=== PATIENT | female | born 1990 | race Caucasian/White ===

== ENCOUNTER 2018-02-01 13:42 | Observation (INO) | payer MEDICAID ==
[2018-02-01 15:35] LABS: Appearance CLEAR (CLEAR); Bilirubin NEGATIVE (NEGATIVE); Glucose NEGATIVE (NEGATIVE); Ketones NEGATIVE (NEGATIVE); Leukocyte Esterase TRACE (NEGATIVE); Nitrite NEGATIVE (NEGATIVE); Protein,Urine Dip NEGATIVE (Negative); Specific Gravity 1.015 (1.005-1.025); Urobilinogen NORMAL mg/dL (0-1)
[2018-02-01] MEDS ORDERED: Lactated Ringers 1,000 ML IV SCH (16:00)
[2018-02-01 16:04] LABS: BASOPHIL % 0.2 % (0.0-0.4); Basophil (Absolute #) 0.02 (0-0.4); Eosinophil % 0.8 % (0.00-5.0); Eosinophil (Absolute #) 0.11 (0-0.5); Granulocyte Absolute (ANC) 8.86 (1.4-6.9); Granulocytes % 68.1 % (36.0-66.0); Hematocrit 34.7 % (35-47); Hemoglobin 11.3 gm/dl (12.0-16.0); Lymphocyte (Absolute #) 2.91 (1.0-4.6); Lymphocytes % 22.4 % (24.0-44.0); Mean Corpuscular Hgb Concent. 32.6 g/dl (32-36); Mean Platelet Volume 9.9 fl (6-9.5); Monocytes % 8.5 % (0.0-12.0); Platelet Count 301 K/mm3 (150-450); Red Blood Count 4.18 M/mm3 (4.1-5.4); Red Cell Distribution Width 14.8 % (11.5-14.0)
[2018-02-01 16:28] LABS: ALBUMIN 3.8 g/dl (3.5-5.0); ALKALINE PHOSPHATASE 105 U/L (38-126); ANION GAP 16.5 MEQ/L; BLOOD UREA NITROGEN 9 mg/dl (7-17); CHLORIDE 103 mEq/L (98-107); Calcium 8.8 mg/dl (8.4-10.2); Carbon Dioxide 21 mmol/L (22-30); Creatinine 1 0.51 mg/dl (0.52-1.04); Glucose 76 mg/dL (74-106); Potassium 3.7 mmol/L (3.5-5.1); SGOT/AST 13 U/L (14-36); SGPT/ALT 8 U/L (0-35); SODIUM 137 mmol/L (137-145); Total Protein 7.2 mg/dl (6.3-8.2)
[2018-02-01 16:33] LABS: Bacteria RARE /HPF (NEGATIVE); Epithelial Cells FEW /HPF (FEW); WBC 0-2 /HPF (0-5)
[2018-02-01 17:00] LABS: INFLUENZA A NEGATIVE (NEGATIVE); INFLUENZA B NEGATIVE (NEGATIVE); RESPIRATORY SYNCTIAL VIRUS NEGATIVE (Negative)
[2018-02-01] MEDS: Lactated Ringers 1,000 ML IV SCH (17:30)
[2018-02-01] MEDS ORDERED: TYLENOL 325 MG PO PRN (19:38)
[2018-02-02] MEDS: Lactated Ringers 1,000 ML IV SCH (00:47)
[2018-02-02 11:53] VITALS: BP 121/58; PULSE 106; O2SAT 98
== END 2018-02-02 11:40 | disposition home or self-care (01) ==
LOC: OB 13:42
PROVIDERS: ADMIT Family Medicine; ATTEND Family Medicine
DX: Z34.83 Encounter for supervision of other normal pregnancy, third trimester (principal)
CPT/HCPCS: 36415; 80053; 81000; 85025; 87631; G0378; A9270-GY

== ENCOUNTER 2018-02-16 15:51 | Inpatient (IN) | payer BC, MEDICAID ==
[2018-02-17] MEDS ORDERED: PITOCIN 30 UNITS/ LR 500 ML 500 ML IV SCH (05:00)
[2018-02-17] MEDS ORDERED: BRETHINE 1 MG/ML SQ PRN (05:00)
[2018-02-17 06:02] LABS: BASOPHIL % 0.2 % (0.0-0.4); Basophil (Absolute #) 0.02 (0-0.4); Eosinophil (Absolute #) 0.13 (0-0.5); Granulocyte Absolute (ANC) 7.95 (1.4-6.9); Granulocytes % 60.6 % (36.0-66.0); Hematocrit 37.2 % (35-47); Lymphocyte (Absolute #) 3.95 (1.0-4.6); Lymphocytes % 30.2 % (24.0-44.0); Mean Corpuscular Hemoglobin 26.8 pg (26-32); Mean Corpuscular Hgb Concent. 32.3 g/dl (32-36); Mean Platelet Volume 10.2 fl (6-9.5); Monocyte (Absolute #) 1.05 (0.0-1.3); Platelet Count 339 K/mm3 (150-450); Red Blood Count 4.48 M/mm3 (4.1-5.4); Red Cell Distribution Width 15.2 % (11.5-14.0); White Blood Count 13.1 K/mm3 (4.0-10.5)
[2018-02-17] MEDS: Lactated Ringers 1,000 ML IV SCH (06:27)
[2018-02-17 09:43] LABS: Amphetamine,Urine NEGATIVE (NEGATIVE); Barbiturate,Urine NEGATIVE (NEGATIVE); Benzodiazepine,Urine NEGATIVE (NEGATIVE); Cocaine,Urine NEGATIVE (NEGATIVE); Methadone,Urine NEGATIVE (NEGATIVE); Opiate,Urine NEGATIVE (NEGATIVE); PCP,Urine NEGATIVE (NEGATIVE); THC,Urine NEGATIVE (NEGATIVE)
[2018-02-17] MEDS ORDERED: OB EPIDURAL NAROPIN/SUFENTANIL IN NACL EPIDURAL PRN (11:09)
[2018-02-17] MEDS ORDERED: Lactated Ringers 1,000 ML IV ONE (11:09)
[2018-02-17] MEDS ORDERED: Ephedrine Sulfate 50 MG/ML IV PRN (11:09)
[2018-02-17] MEDS ORDERED: XYLOCAINE 1% HCL 20 ML MDV IJ PRN (14:45)
[2018-02-17] MEDS ORDERED: Mylicon 80MG PO PRN (15:49)
[2018-02-17] MEDS ORDERED: Dermoplast Spray TP PRN (15:49)
[2018-02-17] MEDS ORDERED: Dulcolax 10 MG SUPP PR PRN (15:49)
[2018-02-17] MEDS ORDERED: LANSINOH 40 GM TOP PRN (15:49)
[2018-02-17] MEDS ORDERED: Anucort-HC SUPPOSITORY PR PRN (15:49)
[2018-02-17] MEDS ORDERED: CORTISONE 1% CREAM TP PRN (15:49)
[2018-02-17] MEDS ORDERED: TYLENOL EXTRA STRENGTH 500 MG PO PRN (15:49)
[2018-02-17] MEDS ORDERED: NORCO 5/325 MG PO PRN (15:49)
[2018-02-17] MEDS ORDERED: Ambien 10 MG PO PRN (15:49)
[2018-02-17] MEDS ORDERED: TUCKS TP PRN (15:49)
[2018-02-17] MEDS: Colace 100 MG PO SCH (22:12)
[2018-02-17] MEDS: MOTRIN 400 MG PO PRN (22:12)
[2018-02-18 05:53] LABS: BASOPHIL % 0.1 % (0.0-0.4); Basophil (Absolute #) 0.01 (0-0.4); Eosinophil % 0.9 % (0.00-5.0); Eosinophil (Absolute #) 0.13 (0-0.5); Granulocyte Absolute (ANC) 9.08 (1.4-6.9); Granulocytes % 61.7 % (36.0-66.0); Hemoglobin 9.4 gm/dl (12.0-16.0); Lymphocyte (Absolute #) 3.86 (1.0-4.6); Lymphocytes % 26.2 % (24.0-44.0); Mean Corpuscular Hemoglobin 26.6 pg (26-32); Mean Corpuscular Hgb Concent. 31.3 g/dl (32-36); Mean Platelet Volume 10.5 fl (6-9.5); Monocyte (Absolute #) 1.63 (0.0-1.3); Monocytes % 11.1 % (0.0-12.0); Platelet Count 242 K/mm3 (150-450); Red Blood Count 3.53 M/mm3 (4.1-5.4); Red Cell Distribution Width 14.9 % (11.5-14.0); White Blood Count 14.7 K/mm3 (4.0-10.5)
[2018-02-18 07:08] LABS: Slide Review 1 YES
[2018-02-18] MEDS: Colace 100 MG PO SCH ×2 (09:21→19:39)
[2018-02-18] MEDS: MOTRIN 400 MG PO PRN ×2 (09:21→19:39)
[2018-02-18] MEDS: FERREX 150 PO SCH (09:21)
[2018-02-18] MEDS: PITOCIN 30 UNITS/ LR 500 ML 500 ML IV SCH ×3 (17:14→17:17)
[2018-02-18] MEDS: Lactated Ringers 1,000 ML IV SCH ×2 (17:15→17:16)
[2018-02-18 20:04] VITALS: O2SAT 99
[2018-02-19] MEDS: MOTRIN 400 MG PO PRN (05:59)
[2018-02-19] MEDS: FERREX 150 PO SCH (10:50)
[2018-02-19] MEDS: Colace 100 MG PO SCH (10:51)
[2018-02-19 11:47] VITALS: BP 108/55; PULSE 88
== END 2018-02-19 15:45 | disposition home or self-care (01) | DRG 775 ==
LOC: UNDOADMOB 15:51 → OB 15:51 → OBSVTOIN 02-17 09:14
PROVIDERS: ADMIT Family Medicine; ATTEND Family Medicine
PROC: 10E0XZZ Delivery of Products of Conception, External Approach (ICD-10-PCS; principal; 2018-02-17)
DX: O80 Encounter for full-term uncomplicated delivery (principal); Z3A.39 39 weeks gestation of pregnancy; Z37.0 Single live birth
CPT/HCPCS: 36415; 80307; 85025; G0378; J2590; J2795; A9270-GY

== ENCOUNTER 2020-07-01 18:08 | Emergency (ER) | payer MEDICAID ==
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
[2020-07-01 19:38] VITALS: BP 119/77; PULSE 72; O2SAT 100
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
== END 2020-07-01 19:39 | disposition home or self-care (01) ==
LOC: ED 18:08
DX: S00.93XA Contusion of unspecified part of head, initial encounter (principal); M54.2 Cervicalgia; R07.9 Chest pain, unspecified; R51 Headache; V43.52XA Car driver injured in collision with other type car in traffic accident, initial encounter; Y92.89 Other specified places as the place of occurrence of the external cause; T14.8XXA Other injury of unspecified body region, initial encounter
CPT/HCPCS: 70450; 71045; 72125; 99284